=== PATIENT | female | born 1950 | race African-American/Black ===

== ENCOUNTER 2018-04-22 17:29 | Emergency (ER) | payer BC, MEDICARE ==
[~2018-04-22] VITALS: Ht 167.6 cm; Wt 86.2 kg
[~2018-04-22 17:29] MED LIST: ADALIMUMAB SQ; ISONIAZID300 MG PO; Z.0.AMLODIPINE BESY1 PO; Z.0.FOLIC ACID1 MG PO; Z.0.LIPITOR20 MG PO; Z.0.NEURONTIN400 MG PO; Z.0.PLAVIX75 MG PO; Z.0.SIMVASTATIN40 MG PO; Z.0.ULTRAM 50MG50 MG; Z.0.VITAMIN D2000 UN PO; Z.0.WELLBUTRIN SR150 PO; Z.0.ZOLPIDEM TARTRA1 PO; Z.1.ATENOLOL-CHLOR1 PO; Z.1.TIZANIDINE HCL4 PO; ZOCOR40 MG PO; [UNRECOGNIZED DRUG - OTHER]
--- NOTE | 2018-04-22 19:01 | Diagnostic Imaging Report ---
EXAMINATION: CXR 2 VIEW - HOPD 04/22/2018 6:20 PM COMPARISON: None INDICATION: Chronic cough, worse over the last two days. DISCUSSION: LINES: None. LUNGS: The lungs are well inflated and clear. No pneumonia or pulmonary edema. Calcified granuloma in the left midlung. PLEURA: No pleural effusion or pneumothorax. HEART AND MEDIASTINUM: Normal heart size. Atherosclerosis of the thoracic aorta. BONES AND SOFT TISSUES: No acute osseous lesion. The soft tissues are normal. IMPRESSION: No acute cardiopulmonary disease. Andi Fritz MD Signed by: Dr. Andi Fritz M.D. on 04/22/2018 6:58 PM
== END 2018-04-22 19:47 | disposition home or self-care (01) ==
LOC: FSED 17:29
DX: R05 Cough (principal); I10 Essential (primary) hypertension; E11.9 Type 2 diabetes mellitus without complications; M10.9 Gout, unspecified; M06.9 Rheumatoid arthritis, unspecified
CPT/HCPCS: 71046; 80053; 84484; 85025; 99283

== ENCOUNTER 2018-05-23 13:10 | Emergency (ER) | payer MEDICARE ==
[2018-05-23] MEDS ORDERED: ACETAMINOPHEN 325 MG TAB PO ONE (14:00)
--- NOTE | 2018-05-23 14:41 | Diagnostic Imaging Report ---
EXAMINATION: PA view of the chest. COMPARISON: None CLINICAL HISTORY: Syncope, elevated blood pressure DISCUSSION: Lines/tubes: None. Lungs: The lungs are well inflated and clear. No pneumonia or pulmonary edema. Scattered granuloma the left lung. Pleura: No pleural effusion or pneumothorax. Heart and mediastinum: The cardiomediastinal silhouette is normal. Bones and soft tissues: No acute bony abnormalities. IMPRESSION: No acute cardiopulmonary abnormalities. Signed by: Dr. Maxi Matt M.D. on 05/23/2018 2:37 PM
--- NOTE | 2018-05-23 14:42 | Diagnostic Imaging Report ---
History: Syncope Comparison studies: None Technique: Axial images were obtained from the skull base to the vertex. Coronal and sagittal reconstructions obtained from the axial data. Dose modulation, iterative reconstruction, and/or weight based adjustment of the mA/kV was utilized to reduce the radiation dose to as low as reasonably achievable. Findings: Scalp/skull: No abnormalities. No fractures, blastic or lytic lesions. Extra-axial spaces: No masses. No fluid collections. Brain sulci: Appropriate for age. Ventricles: Normal in size and configuration. No hydrocephalus. Parenchyma: No abnormal densities. No masses, hemorrhage, acute or chronic cortical vascular insults. Sellar/suprasellar region: No abnormalities Craniocervical junction: Patent foramen magnum. No Chiari one malformation. Partial opacification of the left masseter cells, secondary to nonspecific inflammation IMPRESSION: No intracranial abnormalities . Signed by: DR Carlos Easton M.D. on 05/23/2018 2:38 PM
[2018-05-23] MEDS ORDERED: IOPAMIDOL 370 MG/ML 50ML INFUS..BTL INJ ONE (16:00)
--- NOTE | 2018-05-23 16:42 | Diagnostic Imaging Report ---
EXAMINATION: CT scan of the chest with contrast. TECHNIQUE: Helical CT images of the chest were performed from the lung apices to the level of the adrenal glands after the intravenous administration of 100 cc of Isovue 300. Coronal and sagittal reformatted images were obtained.Dose modulation, iterative reconstruction, and/or weight based adjustment of the mA/kV was utilized to reduce the radiation dose to as low as reasonably achievable. COMPARISON: None. CLINICAL HISTORY:High blood pressure, dizziness DISCUSSION: LINES/TUBES: None. LUNGS AND AIRWAYS: No pulmonary embolism. Emphysematous change in the lungs. No concerning nodule or mass. Scattered calcified granuloma. PLEURA: No pneumothorax or pleural effusions. HEART AND MEDIASTINUM: The thyroid gland is normal. The heart and pericardium are within normal limits. Mild vascular calcifications. LYMPH NODES: There is no mediastinal, hilar or axillary lymphadenopathy. ABDOMEN: Limited contrast-enhanced views of the upper abdomen show no abnormality within the visualized liver, spleen, pancreas, or kidneys. The adrenal glands are normal. BONES AND SOFT TISSUES: No acute bony abnormalities. IMPRESSION: No pulmonary embolism Pulmonary emphysema Signed by: Dr. Maxi Matt M.D. on 05/23/2018 4:39 PM
[2018-05-23 17:55] VITALS: BP 174/78
== END 2018-05-23 18:30 | disposition left against medical advice (07) ==
LOC: FSED 13:10
DX: R55 Syncope and collapse (principal); M06.9 Rheumatoid arthritis, unspecified; I10 Essential (primary) hypertension; E11.9 Type 2 diabetes mellitus without complications
CPT/HCPCS: 70450; 71045; 71275; 93005; 99283; Q9967

== ENCOUNTER 2019-06-02 12:56 | Emergency (ER) | payer MEDICARE ==
[~2019-06-02] VITALS: Ht 167.6 cm; Wt 89.4 kg
[2019-06-02] MEDS ORDERED: OMEPRAZOLE40 MG PO (13:16)
[2019-06-02] MEDS ORDERED: HYDROCHLOROT 12.5MG PO (13:16)
[2019-06-02] MEDS ORDERED: ALLOPURINOL100 MG PO (13:16)
[2019-06-02] MEDS ORDERED: LEFLUNOMIDE20 MG PO (13:16)
[2019-06-02] MEDS ORDERED: LISINOPRIL10 MG PO (13:16)
[2019-06-02] MEDS ORDERED: GABAPENTIN300 MG PO (13:17)
[2019-06-02] MEDS ORDERED: ZOLOFT50 MG PO (13:17)
[2019-06-02] MEDS ORDERED: ACETAMINOPHEN-1 EAC4 (13:17)
[2019-06-02] MEDS ORDERED: CRESTOR10 MG PO (13:17)
[2019-06-02] MEDS ORDERED: XELJANZ 11 MG PO (13:17)
[2019-06-02] MEDS ORDERED: METOPROLOL SUCC50 MG PO (13:17)
--- NOTE | 2019-06-02 13:30 | NUR ---
PATIENT TO ROOM 7
[2019-06-02] MEDS ORDERED: SODIUM CHLORIDE 0.9% 500ML 500 ML IV STA (13:58)
[2019-06-02 14:03] LABS: BASOPHILS # (AUTO) 0.1 (0.0-0.1); BASOPHILS % 0.6 % (0.0-1.0); EOSINOPHILS # (AUTO) 0.1 (0.0-0.4); EOSINOPHILS % 1.5 % (0.0-6.0); HEMATOCRIT 33.3 % (34.2-44.1); HEMOGLOBIN 10.6 g/dL (12.0-16.0); LYMPHOCYTES # (AUTO) 1.9 (1.0-3.2); LYMPHOCYTES % 21.2 % (18.0-39.1); MEAN CORPUSCULAR HEMOGLOBIN 27.7 pg (28-32); MEAN CORPUSCULAR HGB CONC 31.8 g/dL (31-35); MEAN CORPUSCULAR VOLUME 86.9 fL (81-99); MONOCYTES # (AUTO) 0.7 (0.2-0.8); MONOCYTES % 7.5 % (4.4-11.3); NEUTROPHILS % 68.7 % (38.7-80.0); PLATELET COUNT 196 x10e3/uL (140-360); RED BLOOD COUNT 3.83 x10e6/uL (3.6-5.1); RED CELL DISTRIBUTION WIDTH 16.6 % (11.7-14.4)
[2019-06-02 14:14] LABS: INR 0.99; PROTHROMBIN TIME 13.6 seconds (11.9-14.5)
[2019-06-02 14:15] LABS: PARTIAL THROMBOPLASTIN TIME 29.2 seconds (23.8-35.5)
[2019-06-02 14:24] LABS: ALBUMIN 2.7 g/dL (3.5-5.0); ALBUMIN/GLOBULIN RATIO 0.5 (0.8-2.0); ANION GAP 12.4 mmol/L (8-16); CALCIUM 9.9 mg/dL (8.4-10.2); CREATININE, SERUM 1.24 mg/dL (0.57-1.11); POTASSIUM 4.4 mmol/L (3.5-5.1)
[2019-06-02 14:43] LABS: BILIRUBIN,URINE NEGATIVE (NEGATIVE); CLARITY,URINE SL CLOUDY (CLEAR); COLOR,URINE YELLOW (YELLOW); KETONES,URINE NEGATIVE (NEGATIVE); LEUKOCYTE ESTERASE ,URINE NEGATIVE (NEGATIVE); NITRITE,URINE NEGATIVE (NEGATIVE); PROTEIN,URINE DIPSTICK 3+ (NEGATIVE); URINE UROBILINOGEN 0.2 mg/dL (0.2 - 1)
[2019-06-02 14:45] LABS: BACTERIA,URINE FEW /HPF; EPITHELIAL CELLS,URINE FEW /LPF; RBC,URINE 0-5 /HPF (0-5); WBC,URINE (MAN) 0-5 /HPF (0-5)
[2019-06-02] MEDS ORDERED: ACETAMINOPHEN 325 MG TAB PO NR (15:00)
--- NOTE | 2019-06-02 15:03 | Diagnostic Imaging Report ---
History: Ringing in both ears, dizziness Comparison studies: CT head 05/23/2018 Technique: Axial images were obtained from the skull base to the vertex. Coronal and sagittal reconstructions obtained from the axial data. Dose modulation, iterative reconstruction, and/or weight based adjustment of the mA/kV was utilized to reduce the radiation dose to as low as reasonably achievable. Findings: Scalp/skull: No abnormalities. No fractures, blastic or lytic lesions. Extra-axial spaces: No masses. No fluid collections. Brain sulci: Appropriate for age. Ventricles: Normal in size and configuration. No hydrocephalus. Parenchyma: No abnormal densities. No masses, hemorrhage, acute or chronic cortical vascular insults. Sellar/suprasellar region: No abnormalities Craniocervical junction: Patent foramen magnum. No Chiari one malformation. Atherosclerotic calcifications of the carotid siphons. IMPRESSION: No acute abnormalities . Signed by: DR Carlos Easton M.D. on 06/02/2019 3:00 PM
[2019-06-02] MEDS ORDERED: ACETAMINOPHEN 325 MG TAB ONE (15:06)
--- NOTE | 2019-06-02 15:09 | Diagnostic Imaging Report ---
EXAMINATION: CHEST SINGLE (PORTABLE) INDICATION: ^ERMD ORDER ^[id number] ^1427 ^Y COMPARISON: Chest radiograph 04/22/2018 FINDINGS: AP view TUBES and LINES: None. LUNGS: Lungs are well inflated. Lungs are clear. There is no evidence of pneumonia or pulmonary edema. PLEURA: No pleural effusion or pneumothorax. HEART AND MEDIASTINUM: The cardiomediastinal silhouette is unremarkable.. BONES AND SOFT TISSUES: No acute osseous lesion. Soft tissues are unremarkable. UPPER ABDOMEN: No free air under the diaphragm. IMPRESSION: No acute thoracic abnormality. Signed by: Dr. Syl Sarkar M.D. on 06/02/2019 3:06 PM
== END 2019-06-02 16:06 | disposition home or self-care (01) ==
LOC: ER 12:56
DX: R42 Dizziness and giddiness (principal); R51 Headache; I10 Essential (primary) hypertension; E11.9 Type 2 diabetes mellitus without complications; F41.9 Anxiety disorder, unspecified; F32.9 Major depressive disorder, single episode, unspecified
CPT/HCPCS: 36415; 70450; 71045; 80053; 81001; 82550; 82553; 83880; 84484; 85025; 85610; 85730; 87086; 93005; 99284; J7040

== ENCOUNTER 2019-11-04 03:35 | Inpatient (IN) | payer MEDICARE ==
[~2019-11-04] VITALS: Ht 167.6 cm; Wt 81.6 kg
[~2019-11-04 03:35] MED LIST changes: +ACETAMINOPHEN-1 EAC4; +ALLOPURINOL100 MG PO; +CRESTOR10 MG PO; +GABAPENTIN300 MG PO; +HYDROCHLOROT 12.5MG PO; +LEFLUNOMIDE20 MG PO; +LISINOPRIL10 MG PO; +METOPROLOL SUCC50 MG PO; +OMEPRAZOLE40 MG PO; +XELJANZ 11 MG PO; +ZOLOFT50 MG PO
[2019-11-04] MEDS ORDERED: ALBUTEROL SULF 0.083% NEB SOLN 3 ML NEB NEB STA (03:42)
[2019-11-04] MEDS ORDERED: IPRATROPIUM BROMIDE 0.02% 2.5 ML NEB NEB ONE (03:45)
[2019-11-04] MEDS ORDERED: METHYLPREDNISOLONE SOD SUCC 125 MG/2ML VIAL IV ONE (03:45)
[2019-11-04 04:25] LABS: BASOPHILS # (AUTO) 0.1 (0.0-0.1); BASOPHILS % 0.5 % (0.0-1.0); EOSINOPHILS # (AUTO) 0.1 (0.0-0.4); EOSINOPHILS % 0.7 % (0.0-6.0); HEMOGLOBIN 10.2 g/dL (12.0-16.0); LYMPHOCYTES % 15.3 % (18.0-39.1); MEAN CORPUSCULAR HEMOGLOBIN 27.6 pg (28-32); MEAN CORPUSCULAR HGB CONC 30.9 g/dL (31-35); MEAN CORPUSCULAR VOLUME 89.4 fL (81-99); MONOCYTES # (AUTO) 0.4 (0.2-0.8); MONOCYTES % 3.4 % (4.4-11.3); NEUTROPHILS # (AUTO) 10.3 (2.1-6.9); NEUTROPHILS % 79.6 % (38.7-80.0); PLATELET COUNT 241 x10e3/uL (140-360); RED BLOOD COUNT 3.69 x10e6/uL (3.6-5.1); RED CELL DISTRIBUTION WIDTH 18.1 % (11.7-14.4)
[2019-11-04 04:41] LABS: ALANINE AMINOTRANSFERASE 17 IU/L (0-55); ALBUMIN 2.4 g/dL (3.5-5.0); ALBUMIN/GLOBULIN RATIO 0.5 (0.8-2.0); ALKALINE PHOSPHATASE 96 IU/L (40-150); ANION GAP 9.9 mmol/L (8-16); BLOOD UREA NITROGEN 23 mg/dL (7-26); BUN/CREATININE RATIO 16 (6-25); CALCIUM 8.9 mg/dL (8.4-10.2); CARBON DIOXIDE 24 mmol/L (22-29); CHLORIDE 105 mmol/L (98-107); CREATINE KINASE 170 IU/L (29-168); EST GLOMERULAR FILTRATION RATE 45 ML/MIN (60-); GLUCOSE 321 mg/dL (74-118); POTASSIUM 3.9 mmol/L (3.5-5.1); SODIUM 135 mmol/L (136-145)
--- NOTE | 2019-11-04 05:02 | Diagnostic Imaging Report ---
EXAMINATION: CHEST SINGLE (PORTABLE) INDICATION: Short of breath COMPARISON: Chest x-ray 04/22/2018 FINDINGS: TUBES and LINES: None. LUNGS: Hyperinflated lungs. Mild central bronchial wall thickening. No consolidations. Left midlung calcified granuloma. PLEURA: No pleural effusion or pneumothorax. HEART AND MEDIASTINUM: The cardiomediastinal silhouette is unremarkable. There are atherosclerotic calcifications within the aorta. BONES AND SOFT TISSUES: Degenerative changes in the spine and shoulders. Soft tissues are unremarkable. Partially visualized cervical fixation hardware. UPPER ABDOMEN: No free air under the diaphragm. IMPRESSION: Findings of pulmonary emphysema and bronchitis. Signed by: Trey Taveras DO on 11/04/2019 5:00 AM
[2019-11-04] MEDS ORDERED: DEXTROSE 50% SYRINGE 50 ML IV PRN (05:30)
[2019-11-04] MEDS: METHYLPREDNISOLONE SOD SUCC 40 MG/ML VIAL 1ML IV SCH ×3 (05:54→17:34)
[2019-11-04] MEDS: DOXYCYCLINE 100MG/NS 100ML 100 ML IV SCH ×2 (06:05→18:32)
--- NOTE | 2019-11-04 07:15 | NUR ---
report given to karen castro
[2019-11-04] MEDS: ALBUTEROL/IPRATROPIUM 3 ML NEB NEB SCH ×5 (07:57→23:00)
--- NOTE | 2019-11-04 08:11 | NUR ---
ASSTED TO RESTROOM. AMBULATORY STEADY GAIT. DENIES SOB.
[2019-11-04] MEDS: INSULIN REGULAR, HUMAN 100 UNIT/1 ML 3ML VIAL SQ SCH ×4 (08:38→21:07)
--- NOTE | 2019-11-04 11:00 | NUR ---
rec'd report from gloria jones for continuity of care.
[2019-11-04] MEDS ORDERED: ACETAMINOPHEN/CODEINE 300MG - 30MG TAB PO PRN (11:15)
[2019-11-04 12:06] LABS: CREATINE KINASE MB 2.2 ng/mL (0-5.0)
--- NOTE | 2019-11-04 12:37 | NUR ---
lab resulted glucose of 530
[2019-11-04] MEDS: AMLODIPINE BESYLATE 10 MG TAB PO SCH ×2 (12:55→13:30)
[2019-11-04] MEDS: METOPROLOL SUCCINATE 50 MG TAB XL PO SCH ×2 (12:56→13:31)
--- NOTE | 2019-11-04 14:58 | NUR ---
RECEIVED PATIENT FROM ER. PATIENT A/O X3. PATIENT ON 3LNC, NO S/S OF DISTRESS. TELEMETRY #1 SR. LEFT AC 20 GAUGE IV SL. PATIENT AMBULATES WITH STANDBY ASSISTANCE. DENIES PAIN AT THIS TIME. CALL LIGHT IN REACH WILL CONTINUE TO MONITOR PATIENT.
[2019-11-04] MEDS ORDERED: ACETAMINOPHEN 325 MG TAB PO PRN (16:45)
[2019-11-04] MEDS ORDERED: ONDANSETRON HCL INJ 2MG/ML 2ML 2 MG/ML VIAL IV PRN (16:45)
--- NOTE | 2019-11-04 16:57 | NUR ---
Called and spoke with Ramesh OGDEN regarding blood sugar 418. Order to give 15 units.
[2019-11-04] MEDS: BUPROPION HCL 100 MG PO SCH (17:00)
[2019-11-04 17:02] VITALS: BP 174/77
[2019-11-04 17:07] VITALS: BP 174/77
[2019-11-04 17:10] VITALS: BP 174/77
[2019-11-04] MEDS: GABAPENTIN 300 MG CAP PO SCH (17:34)
[2019-11-04 17:58] LABS: CREATINE KINASE MB 2.4 ng/mL (0-5.0)
[2019-11-04] MEDS: ATENOLOL 100 MG TAB PO SCH (18:00)
[2019-11-04] MEDS: HYDROCODONE/APAP 7.5MG-325MG 1 EA TAB PO PRN ×2 (18:00→18:32)
[2019-11-04] MEDS ORDERED: SODIUM CHLORIDE 0.9% 250ML 250 ML ONE (18:29)
[2019-11-04] MEDS: SERTRALINE HCL 50 MG TAB PO SCH (18:32)
--- NOTE | 2019-11-04 19:18 | NUR ---
Patient received sitting up in bed. AAO x 4. Patient had no complaints of pain. Respirations even and non-labored on 3L NC. . Fall precautions implemented. Patient instructed to call for assistance when needed. Call light within reach.
[2019-11-04 21:00] VITALS: BP 167/74
[2019-11-04] MEDS: INSULIN GLARGINE 100 UNITS/ML VIAL SQ SCH (21:00)
[2019-11-04] MEDS: SIMVASTATIN 20 MG TAB PO SCH (21:07)
[2019-11-04] MEDS ORDERED: SODIUM CHLORIDE 0.9% 1000ML 1,000 ML IV ONE (22:30)
[2019-11-05] VITALS (9 sets, daily range): BP systolic 121–177; BP diastolic 63–82
--- NOTE | 2019-11-05 02:08 | Consultation ---
DATE OF CONSULTATION: 11/04/2019 Pulmonary Critical Care Consultation CHIEF COMPLAINT: Dyspnea, wheezing, and worsening cough. HISTORY OF PRESENT ILLNESS: The patient is a 69-year-old woman. She was recently diagnosed with chronic bronchitis and has been on a rescue inhaler. Over the past several weeks, she notes worsening dyspnea and wheezing since catching a cough and cold. She also notes a nonproductive cough. She denies any fever. She is not having chest pain. PAST SURGICAL HISTORY: 1. Status post back surgery. 2. Status post neck surgery. 3. Status post vascular stent in the leg. PAST MEDICAL HISTORY: 1. Chronic bronchitis. 2. Chronic back pain. 3. Arthritis. 4. Diverticulosis. FAMILY HISTORY: Significant for hypertension, diabetes, and heart disease. SOCIAL HISTORY: The patient quit smoking 10 years ago. She does not drink. ALLERGIES: THERE ARE NO KNOWN DRUG ALLERGIES. REVIEW OF SYSTEMS: The patient has no fever or headache. She has no neck pain. She does have some mild cough. She has no chest pain. She does have some wheezing. She has dyspnea. She has no abdominal pain. She has no nausea or vomiting. She has no leg edema. PHYSICAL EXAMINATION: VITAL SIGNS: The patient is afebrile. The vital signs are stable. CARDIAC: Reveals a regular rate and rhythm with a normal S1 and S2. LUNGS: Auscultation of lungs reveals a prolonged expiratory phase. There is no wheezing at this time. ABDOMEN: Soft, nontender. There is no rebound or guarding. EXTREMITIES: No leg edema or calf tenderness. There is no cyanosis or clubbing. SKIN: No rashes. NEUROLOGICAL: No focal abnormalities. LABORATORY DATA: White blood cell count is 13, hemoglobin is 10.2. The platelet count is 241. Blood sugar is 328. BUN to creatinine ratio is 23 to 1.4. Sodium is 135. RADIOGRAPHIC DATA: Chest x-ray shows hyperinflation, no infiltrates. IMPRESSION: 1. Chronic obstructive pulmonary disease with acute exacerbation. 2. Anemia, unspecified. 3. Acute kidney injury. 4. Hyperglycemia and diabetes. PLAN: 1. Continue Solu-Medrol. 2. Doxycycline. 3. Bronchodilators. 4. IV fluids. 5. Monitor and control blood sugars. Sandip Garay MD [facility] /[id number]
[2019-11-05] MEDS: ALBUTEROL/IPRATROPIUM 3 ML NEB NEB SCH ×6 (03:00→23:00)
[2019-11-05] MEDS: DOXYCYCLINE 100MG/NS 100ML 100 ML IV SCH ×2 (05:30→17:52)
[2019-11-05 06:24] LABS: BASOPHILS % 0.1 % (0.0-1.0); HEMATOCRIT 28.7 % (34.2-44.1); HEMOGLOBIN 9.1 g/dL (12.0-16.0); LYMPHOCYTES # (AUTO) 1.1 (1.0-3.2); LYMPHOCYTES % 7.4 % (18.0-39.1); MEAN CORPUSCULAR HEMOGLOBIN 27.7 pg (28-32); MEAN CORPUSCULAR HGB CONC 31.7 g/dL (31-35); MEAN CORPUSCULAR VOLUME 87.5 fL (81-99); MONOCYTES # (AUTO) 0.8 (0.2-0.8); MONOCYTES % 5.3 % (4.4-11.3); NEUTROPHILS # (AUTO) 13.2 (2.1-6.9); NEUTROPHILS % 86.5 % (38.7-80.0); PLATELET COUNT 215 x10e3/uL (140-360); RED BLOOD COUNT 3.28 x10e6/uL (3.6-5.1); RED CELL DISTRIBUTION WIDTH 18.1 % (11.7-14.4)
--- NOTE | 2019-11-05 06:45 | NUR ---
Patient resting comfortably. Bed- side report given to oncoming nurse.
[2019-11-05 06:54] LABS: ANION GAP 8.8 mmol/L (8-16); CALCIUM 8.4 mg/dL (8.4-10.2); CREATININE, SERUM 1.59 mg/dL (0.57-1.11); POTASSIUM 4.8 mmol/L (3.5-5.1)
--- NOTE | 2019-11-05 07:03 | NUR ---
Patient lying in bed with eyes open. Respiration even and unlabored without SOB. Call light in reach.
[2019-11-05 07:25] LABS: MAGNESIUM 1.4 MG/DL (1.3-2.1); PHOSPHORUS 4.1 MG/DL (2.3-4.7)
[2019-11-05] MEDS: INSULIN REGULAR, HUMAN 100 UNIT/1 ML 3ML VIAL SQ SCH ×4 (07:30→21:09)
[2019-11-05] MEDS ORDERED: XELJANZ 11 MG PO SCH (09:00)
[2019-11-05] MEDS: BUPROPION HCL 100 MG PO SCH ×2 (09:00→17:00)
[2019-11-05] MEDS ORDERED: LISINOPRIL 10 MG TAB PO SCH (09:00)
[2019-11-05] MEDS ORDERED: LEFLUNOMIDE PO SCH (09:00)
[2019-11-05] MEDS ORDERED: HYDROCHLOROTHIAZIDE 12.5 MG PO SCH (09:00)
[2019-11-05] MEDS ORDERED: METHYLPREDNISOLONE SOD SUCC 40 MG/ML VIAL 1ML IV SCH (09:00)
[2019-11-05] MEDS ORDERED: SIMVASTATIN 40 MG TAB PO SCH (09:00)
[2019-11-05] MEDS ORDERED: SERTRALINE HCL 50 MG TAB PO SCH (09:00)
[2019-11-05] MEDS ORDERED: LISINOPRIL 20 MG TAB PO SCH (09:00)
[2019-11-05] MEDS: HYDROCHLOROTHIAZIDE 25 MG TAB PO SCH (09:03)
[2019-11-05] MEDS: GABAPENTIN 300 MG CAP PO SCH ×2 (09:03→17:52)
[2019-11-05] MEDS: AMLODIPINE BESYLATE 10 MG TAB PO SCH (09:04)
[2019-11-05] MEDS: ATENOLOL 100 MG TAB PO SCH ×2 (09:05→17:52)
[2019-11-05] MEDS: PANTOPRAZOLE SOD 40 MG TABEC PO SCH (09:05)
[2019-11-05] MEDS: SERTRALINE HCL 50 MG TAB PO SCH (09:05)
[2019-11-05] MEDS: ALLOPURINOL 100 MG TAB PO SCH (09:05)
[2019-11-05] MEDS: CLOPIDOGREL BISULFATE 75 MG TAB PO SCH (09:05)
[2019-11-05] MEDS ORDERED: SODIUM CHLORIDE 0.9% 1000ML 1,000 ML IV ONE (14:30)
--- NOTE | 2019-11-05 15:02 | Progress Note ---
DATE: 11/05/2019 SUBJECTIVE: The patient has less dyspnea and wheezing. However, her blood sugar was 538. Her creatinine is still elevated at 1.4. PHYSICAL EXAMINATION: VITAL SIGNS: The patient is afebrile. The blood pressure is 177/82 and the saturation is 99% on 2 L. HEENT: Shows no facial swelling or erythema. CARDIAC: Reveals a regular rate and rhythm with normal S1 and S2. LUNGS: Auscultation of lungs reveals clear breath sounds bilaterally. There is no wheezing. ABDOMEN: Soft and nontender. There is no rebound or guarding. EXTREMITIES: Shows no leg edema or calf tenderness. There is no cyanosis or clubbing. SKIN: Shows no rashes. NEUROLOGICAL: Shows no focal abnormalities. LABORATORY DATA: Creatinine is 1.4 and the sodium is 135. The white blood cell count 15.2 and the hemoglobin is 9.1. The platelet count is 250. IMPRESSION: 1. Diabetes out of control with blood sugar over 500. 2. Acute kidney injury. 3. Chronic obstructive pulmonary disease with acute exacerbation. 4. Anemia, unspecified. PLAN: 1. Stop Solu-Medrol. 2. Continue IV fluids. 3. Continue bronchodilators. 4. Complete antibiotics. 5. Repeat creatinine tomorrow. Sandip Garay MD [facility]/DIOR /[id number] MTDD
[2019-11-05] MEDS ORDERED: ONDANSETRON HCL 4 MG ORAL DISINTEGRATING TAB PO PRN (15:15)
--- NOTE | 2019-11-05 19:20 | NUR ---
Received patient awake, not in distress, call light within easy reach, advised to call anytime when needed, will continue to monitor patient
--- NOTE | 2019-11-05 19:32 | NUR ---
Report given to retail shift supervisor. Respiration even and unlabored without SOB. Call light in reach.
[2019-11-05] MEDS: SIMVASTATIN 20 MG TAB PO SCH (21:09)
[2019-11-05] MEDS: INSULIN GLARGINE 100 UNITS/ML VIAL SQ SCH (21:09)
[2019-11-05] MEDS: HYDRALAZINE HCL 20 MG/ML VIAL IV PRN (21:12)
[2019-11-05] MEDS: HYDROCODONE/APAP 7.5MG-325MG 1 EA TAB PO PRN (22:56)
[2019-11-06] VITALS (7 sets, daily range): BP systolic 139–168; BP diastolic 63–74
[2019-11-06] MEDS: ALBUTEROL/IPRATROPIUM 3 ML NEB NEB SCH ×4 (01:45→15:12)
[2019-11-06] MEDS: HYDRALAZINE HCL 20 MG/ML VIAL IV PRN (05:24)
[2019-11-06] MEDS: DOXYCYCLINE 100MG/NS 100ML 100 ML IV SCH (05:24)
[2019-11-06] MEDS: HYDROCODONE/APAP 7.5MG-325MG 1 EA TAB PO PRN (05:24)
[2019-11-06 06:23] LABS: BASOPHILS % 0.1 % (0.0-1.0); EOSINOPHILS % 0.1 % (0.0-6.0); HEMATOCRIT 30.7 % (34.2-44.1); HEMOGLOBIN 9.5 g/dL (12.0-16.0); LYMPHOCYTES # (AUTO) 1.9 (1.0-3.2); LYMPHOCYTES % 14.2 % (18.0-39.1); MEAN CORPUSCULAR HEMOGLOBIN 27.6 pg (28-32); MEAN CORPUSCULAR HGB CONC 30.9 g/dL (31-35); MEAN CORPUSCULAR VOLUME 89.2 fL (81-99); MONOCYTES % 7.5 % (4.4-11.3); NEUTROPHILS # (AUTO) 10.5 (2.1-6.9); NEUTROPHILS % 76.9 % (38.7-80.0); PLATELET COUNT 236 x10e3/uL (140-360); RED BLOOD COUNT 3.44 x10e6/uL (3.6-5.1); RED CELL DISTRIBUTION WIDTH 18.5 % (11.7-14.4)
[2019-11-06 06:53] LABS: ALBUMIN 2.3 g/dL (3.5-5.0); ALBUMIN/GLOBULIN RATIO 0.5 (0.8-2.0); ANION GAP 9.9 mmol/L (8-16); CALCIUM 8.5 mg/dL (8.4-10.2); CREATININE, SERUM 1.44 mg/dL (0.57-1.11); POTASSIUM 3.9 mmol/L (3.5-5.1)
--- NOTE | 2019-11-06 07:12 | NUR ---
Bedside rounding done, call light within reach, grand daughter at bedside
[2019-11-06] MEDS: INSULIN REGULAR, HUMAN 100 UNIT/1 ML 3ML VIAL SQ SCH ×2 (07:30→12:00)
[2019-11-06] MEDS: HYDROCHLOROTHIAZIDE 25 MG TAB PO SCH (09:38)
[2019-11-06] MEDS: GABAPENTIN 300 MG CAP PO SCH (09:38)
[2019-11-06] MEDS: SERTRALINE HCL 50 MG TAB PO SCH (09:38)
[2019-11-06] MEDS: ATENOLOL 100 MG TAB PO SCH (09:38)
[2019-11-06] MEDS: AMLODIPINE BESYLATE 10 MG TAB PO SCH (09:38)
[2019-11-06] MEDS: PANTOPRAZOLE SOD 40 MG TABEC PO SCH (09:38)
[2019-11-06] MEDS: CLOPIDOGREL BISULFATE 75 MG TAB PO SCH (09:38)
[2019-11-06] MEDS: ALLOPURINOL 100 MG TAB PO SCH (09:39)
[2019-11-06] MEDS ORDERED: ATENOLOL100 MG PO (13:51)
--- NOTE | 2019-11-06 15:41 | NUR ---
Discharge instructions and prescriptions given to the patient. She verbalized understanding. IV to the left FA was removed with tip intact.
--- NOTE | 2019-11-06 15:59 | NUR ---
IMM letter delivered and explained to pt. She verbalized understanding. States she is ready to go home. Signed copy placed in chart. Copy to pt.
--- NOTE | 2019-11-06 16:48 | Progress Note ---
DATE: 11/06/2019 SUBJECTIVE: The patient has less dyspnea and less wheezing. Her blood sugar is better. She is not having any fevers. PHYSICAL EXAMINATION: VITAL SIGNS: The patient is afebrile. The blood pressure is 152/69 and saturation is 99% on 2 L. HEENT: Shows no facial swelling or erythema. CARDIAC: Reveals regular rate and rhythm with normal S1 and S2. LUNGS: Auscultation of lungs reveals clear breath sounds bilaterally. There is no wheezing. ABDOMEN: Soft and nontender. There is no rebound or guarding. EXTREMITIES: Shows no leg edema or calf tenderness. LABORATORY DATA: BUN to creatinine ratio is 36 to 1.44 and the glucose is 158. The white blood cell count is 13.6 and the hemoglobin is 9.5. The platelet count is 236. IMPRESSION: 1. Diabetes out of control. 2. Acute kidney injury. 3. Chronic obstructive pulmonary disease with acute exacerbation. 4. Anemia, unspecified. PLAN: 1. Continue bronchodilators. 2. Complete antibiotics as an outpatient. 3. Continue to monitor blood sugars. 4. Okay for discharge with followup in 1 to 2 weeks. Sandip Garay MD [facility]/MODL /[id number]
--- NOTE | 2019-11-08 04:50 | Discharge Summary ---
CHIEF COMPLAINT: Shortness of breath. CONSULTING PHYSICIANS: Include Dr. Sandip Garay with Pulmonology. HISTORY OF PRESENT ILLNESS: Ms. Argueta is a 69-year-old female, who was diagnosed with asthma and probable COPD. Three weeks prior to admission, she developed shortness of breath the night prior to admission, received a nebulized treatment en route to the emergency department. She had cough and wheezing, which is started two days prior. The shortness of breath was much worse at 2:30 in the morning on November 03 and she was admitted for further evaluation. PAST MEDICAL HISTORY: COPD, asthma, hypertension, diabetes mellitus, anxiety, depression, chronic back pain, gout, arthritis, rheumatoid arthritis, chronic hip pain, "one kidney", hyperlipidemia, chronic bronchitis, EGD/colonoscopy on 06/22/2012, colon polyps, diverticulosis, and obesity. PAST SURGICAL HISTORY: Includes vascular stent to the leg, back surgery x3, and neck surgery x1. FAMILY HISTORY: Mother has hypertension, diabetes mellitus, arthritis. Brother has hypertension and GA. SOCIAL HISTORY: The patient began smoking at age 15. She quit smoking in 2009. She smoked about 44 years at one pack per day for 44 pack years. Smoked marijuana off and on. ALLERGIES: NO KNOWN ALLERGIES. ADMITTING DIAGNOSES: 1. Acute exacerbation of chronic obstructive pulmonary disease with hypoxia. 2. Uncontrolled hypertension. 3. Uncontrolled type 2 diabetes mellitus with hyperglycemia. 4. Anxiety/depression. 5. Rheumatoid arthritis, chronic back pain. 6. Hyperlipidemia. 7. Obesity with BMI of 31.79. DISCHARGE DIAGNOSES: 1. Acute exacerbation of chronic obstructive pulmonary disease with hypoxia. 2. Uncontrolled hypertension. 3. Uncontrolled type 2 diabetes mellitus with hyperglycemia. 4. Anxiety/depression. 5. Rheumatoid arthritis, chronic back pain. 6. Hyperlipidemia. 7. Obesity with BMI of 31.79. HOSPITAL COURSE: On admission lab, glucose 538. B type nitrate peptide 127.9. Fingerstick blood glucose 418. Cardiac biomarkers were negative. Chest x-ray showed pulmonary emphysema and bronchitis. BUN 23, creatinine 1.4. EGFR 45. WBCs 12.9, hemoglobin 10.2, hematocrit 33, total protein 7.6, albumin 2.4. Today on the day of discharge, WBCs 13.61, while still receiving steroids, hemoglobin 9.5, hematocrit 30.7, platelets 236. BUN 36, creatinine 1.44, estimated GFR 44. Fingerstick blood glucose levels 100 and 158 mg/dL today. Influenza types A and B were negative on November 04. The next day, the patient was given IV Solu-Medrol, supplemental oxygen, DuoNebs. Her Leflunomide was held, which she receives for rheumatoid arthritis as it is immunosuppressive. Lisinopril was held, given her creatinine to 1.4. Hemoglobin A1c was 7.2%. Bupropion and sertraline were continued for anxiety/depression. The patient is gradually improved. Sending her home today without Lantus as her IV steroids been discontinued. Continue glipizide and Xeljanz. Case was discussed with Dr. Lao and Dr. Garay, both concur that the patient can be discharged home. Continue ADA diet. Activity level as tolerated. Follow up with PCP, Dr. Bello in 1 to 2 weeks. Follow up with Dr. Garay as directed. Dictated by Ramesh Arroyo NP MD [facility]/MODL /[id number]
== END 2019-11-06 16:42 | disposition home or self-care (01) | DRG 191 ==
LOC: ER 03:35 → ERHOLD 05:42 → MED/SURG2 14:52 → OBSVTOIN 11-05 14:03
PROVIDERS: ADMIT Internal Medicine; ATTEND Internal Medicine
DX: J44.1 Chronic obstructive pulmonary disease with (acute) exacerbation (principal); N17.9 Acute kidney failure, unspecified; I10 Essential (primary) hypertension; E11.65 Type 2 diabetes mellitus with hyperglycemia; F41.9 Anxiety disorder, unspecified; F32.9 Major depressive disorder, single episode, unspecified; M06.9 Rheumatoid arthritis, unspecified; E66.9 Obesity, unspecified; Z68.31 Body mass index [BMI] 31.0-31.9, adult; E78.5 Hyperlipidemia, unspecified; R09.02 Hypoxemia; G89.29 Other chronic pain
CPT/HCPCS: 36415; 71045; 80048; 80053; 82550; 82553; 82947; 82948; 83036; 83735; 83880; 84100; 84484; 85025; 87400; 93005; 94640; 99284; G0378; J0360; J1815; J1817; J2920; J2930; J7030; J7050

== ENCOUNTER 2022-04-05 16:58 | Emergency (ER) | payer MEDICARE ==
[~2022-04-05] VITALS: Ht 167.6 cm; Wt 74.1 kg
[~2022-04-05 16:58] MED LIST changes: +ASPIRIN81 MG PO; +ATENOLOL100 MG PO; +HYDROCODON-ACE1 EAC9; +TRELEGY ELLIPT1 EACH; +TRESIBA FL100 UNIT/1 SQ
[2022-04-05] MEDS ORDERED: DEXAMETHASONE SOD PHOS 10 MG/1 ML VIAL IM ONE (17:15)
[2022-04-05] MEDS ORDERED: TRIAMCINOLONE A15 G2 TOP (17:22)
[2022-04-05] MEDS ORDERED: HYDROXYZINE HCL50 MG PO (17:22)
[2022-04-05] MEDS ORDERED: DIPHENHYDRAMINE50 M1 PO (17:22)
[2022-04-05] MEDS ORDERED: DEXAMETHASONE SOD PHOS INJ 4 MG/ML SDV ONE (17:31)
[2022-04-05] MEDS ORDERED: LOSARTAN POTAS100 MG PO (17:48)
[2022-04-05] MEDS ORDERED: PULMICORT1 MG/2 ML (17:48)
[2022-04-05] MEDS ORDERED: CRESTOR10 MG PO (17:48)
[2022-04-05] MEDS ORDERED: TRELEGY ELLIPT1 EACH (17:48)
[2022-04-05] MEDS ORDERED: COMBIVENT RESPIM4 GM IH (17:48)
[2022-04-05] MEDS ORDERED: HYDROCHLOROTHIA50 MG (17:48)
[2022-04-05] MEDS ORDERED: SODIUM BICARBO650 MG PO (17:48)
== END 2022-04-05 17:41 | disposition home or self-care (01) ==
LOC: FSED 17:02
DX: R21 Rash and other nonspecific skin eruption (principal); I10 Essential (primary) hypertension; E11.9 Type 2 diabetes mellitus without complications; J44.9 Chronic obstructive pulmonary disease, unspecified; I50.9 Heart failure, unspecified; E78.5 Hyperlipidemia, unspecified; M06.9 Rheumatoid arthritis, unspecified; Z86.73 Personal history of transient ischemic attack (TIA), and cerebral infarction without residual deficits
CPT/HCPCS: 36415; 82948; 96372; 99283; J1100

== ENCOUNTER 2022-09-15 12:30 | Emergency (ER) | payer MEDICARE ==
[~2022-09-15] VITALS: Ht 167.6 cm; Wt 73.9 kg
[~2022-09-15 12:30] MED LIST changes: +COMBIVENT RESPIM4 GM IH; +DIPHENHYDRAMINE50 M1 PO; +HYDROCHLOROTHIA50 MG; +HYDROXYZINE HCL50 MG PO; +LOSARTAN POTAS100 MG PO; +PULMICORT1 MG/2 ML; +SODIUM BICARBO650 MG PO; +TRIAMCINOLONE A15 G2 TOP
[2022-09-15] MEDS ORDERED: DIATRIZOATE MEGL/DIATRIZOA SOD 30 ML BTL PO ONE (13:46)
[2022-09-15] MEDS ORDERED: ONDANSETRON HCL INJ 2MG/ML 2ML 2 MG/ML VIAL IV STA (14:55)
[2022-09-15] MEDS ORDERED: Morphine 4mg INJECTION 4 MG/ML INJ IV ONE ×2 (15:00→16:00)
[2022-09-15] MEDS ORDERED: ONDANSETRON HCL INJ 2MG/ML 2ML 2 MG/ML VIAL ONE (15:34)
[2022-09-15] MEDS ORDERED: METHOCARBAMOL500 MG PO (16:29)
== END 2022-09-15 16:37 | disposition home or self-care (01) ==
LOC: FSED 12:37
DX: M54.50 Low back pain, unspecified (principal); R10.32 Left lower quadrant pain; I10 Essential (primary) hypertension; D64.9 Anemia, unspecified; E11.65 Type 2 diabetes mellitus with hyperglycemia; J44.9 Chronic obstructive pulmonary disease, unspecified; E78.5 Hyperlipidemia, unspecified
CPT/HCPCS: 74176; 80053; 81003; 85025; 99284; J2270; J2405; Q9963

== ENCOUNTER 2024-08-31 16:01 | Emergency (ER) | payer MEDICARE ==
[~2024-08-31] VITALS: Ht 167.6 cm; Wt 69.9 kg
[~2024-08-31 16:01] MED LIST changes: +METHOCARBAMOL500 MG PO
[2024-08-31 16:36] VITALS: PULSE 66; RESP 16; TEMP 97.4
[2024-08-31] MEDS ORDERED: SODIUM CHLORIDE FLUSH 10 ML SYR IV PRN (17:15)
[2024-08-31 17:18] LABS: BASOPHILS % 0.6 % (0.0-1.0); EOSINOPHILS # (AUTO) 0.2 (0.0-0.4); EOSINOPHILS % 2.5 % (0.0-6.0); HEMATOCRIT 27.9 % (34.2-44.1); HEMOGLOBIN 8.2 g/dL (12.0-16.0); LYMPHOCYTES % 15.1 % (18.0-39.1); MEAN CORPUSCULAR HEMOGLOBIN 27.2 pg (28-32); MEAN CORPUSCULAR HGB CONC 29.4 g/dL (31-35); MEAN CORPUSCULAR VOLUME 92.4 fL (81-99); MONOCYTES # (AUTO) 0.5 (0.2-0.8); MONOCYTES % 7.3 % (4.4-11.3); NEUTROPHILS % 74.2 % (38.7-80.0); PLATELET COUNT 243 x10e3/uL (140-360); RED BLOOD COUNT 3.02 x10e6/uL (3.6-5.1); RED CELL DISTRIBUTION WIDTH 16.4 % (11.7-14.4)
[2024-08-31 17:30] LABS: ALBUMIN 2.7 g/dL (3.5-5.0); ALBUMIN/GLOBULIN RATIO 0.6 (0.8-2.0); ANION GAP 12.6 mmol/L (8-16); BILIRUBIN,TOTAL 0.2 mg/dL (0.2-1.2); CALCIUM 8.2 mg/dL (8.4-10.2); CREATININE, SERUM 4.37 mg/dL (0.57-1.11); POTASSIUM 4.6 mmol/L (3.5-5.1); TOTAL PROTEIN 7.4 g/dL (6.5-8.1)
[2024-08-31] MEDS: METOPROLOL SUCCINATE 25 MG TAB XL PO SCH (17:30)
[2024-08-31 17:35] LABS: TROPONIN I 0.037 ng/mL (0-0.300)
[2024-08-31] MEDS: HYDRALAZINE HCL 100 MG TABLET PO SCH (18:36)
[2024-08-31] MEDS: HYDROCHLOROTHIAZIDE 25 MG TAB PO SCH (18:38)
[2024-08-31] MEDS: ISOSORBIDE DINITRATE 20 MG TAB PO SCH (18:38)
[2024-08-31] MEDS: LOSARTAN POTASSIUM 100 MG TAB PO SCH (18:39)
[2024-08-31 20:08] VITALS: BP 172/84; PULSE 71; RESP 18; TEMP 98.3; O2SAT 99
== END 2024-08-31 19:42 | disposition home or self-care (01) ==
LOC: ER 17:03
DX: I10 Essential (primary) hypertension (principal); I12.9 Hypertensive chronic kidney disease with stage 1 through stage 4 chronic kidney disease, or unspecified chronic kidney disease; N18.9 Chronic kidney disease, unspecified; D64.9 Anemia, unspecified; Z91.148 Patient's other noncompliance with medication regimen for other reason
CPT/HCPCS: 36415; 71046; 80053; 83880; 84484; 85025; 93005; 94760; 99284

== ENCOUNTER 2024-09-15 09:21 | Inpatient (IN) | payer MEDICARE ==
[~2024-09-15] VITALS: Ht 167.6 cm; Wt 77.2 kg
[2024-09-15] VITALS (35 sets, daily range): BP systolic 161–210; BP diastolic 59–86; PULSE 59–76; RESP 6–20; TEMP 97.5–99; O2SAT 99–100
[2024-09-15] MEDS: SODIUM CHLORIDE FLUSH 10 ML SYR INJ PRN (09:22)
[2024-09-15] MEDS: ETOMIDATE 40 MG/ 20ML VIAL IV STA (09:25)
[2024-09-15] MEDS: SUCCINYLCHOLINE 200 MG/10 ML SYR IV STA (09:25)
[2024-09-15] MEDS: PROPOFOL IV EMULSION 50 ML IV PRN (09:30)
[2024-09-15] MEDS ORDERED: PROPOFOL IV EMULSION 50 ML IV ONE (09:40)
[2024-09-15] MEDS: MIDAZOLAM HCL 2 MG/2 ML VIAL IV ONE (09:45)
[2024-09-15 10:15] LABS: BASOPHILS # (AUTO) 0.1 (0.0-0.1); BASOPHILS % 0.4 % (0.0-1.0); EOSINOPHILS # (AUTO) 0.3 (0.0-0.4); EOSINOPHILS % 2.2 % (0.0-6.0); HEMATOCRIT 29.6 % (34.2-44.1); HEMOGLOBIN 8.3 g/dL (12.0-16.0); LYMPHOCYTES # (AUTO) 3.2 (1.0-3.2); LYMPHOCYTES % 23.5 % (18.0-39.1); MEAN CORPUSCULAR HEMOGLOBIN 26.9 pg (28-32); MEAN CORPUSCULAR VOLUME 96.1 fL (81-99); MONOCYTES # (AUTO) 0.9 (0.2-0.8); MONOCYTES % 6.9 % (4.4-11.3); NEUTROPHILS # (AUTO) 8.8 (2.1-6.9); NEUTROPHILS % 65.4 % (38.7-80.0); PLATELET COUNT 278 x10e3/uL (140-360); RED BLOOD COUNT 3.08 x10e6/uL (3.6-5.1); RED CELL DISTRIBUTION WIDTH 17.5 % (11.7-14.4)
[2024-09-15 10:29] LABS: ABG HCO3 22 mmol/L (22-26); ABG PCO2 46 mmHg (35-45); ABG PH 7.29 (7.35-7.45); ABG PO2 95 mmHg (80-105); ABG TCO2 24
[2024-09-15 10:30] LABS: INR 1.28; PROTHROMBIN TIME 16.7 seconds (11.9-14.5)
[2024-09-15 10:31] LABS: PARTIAL THROMBOPLASTIN TIME 32.4 seconds (23.8-35.5)
[2024-09-15 10:38] LABS: ALBUMIN 2.7 g/dL (3.5-5.0); ALBUMIN/GLOBULIN RATIO 0.5 (0.8-2.0); ANION GAP 19.6 mmol/L (8-16); BILIRUBIN,TOTAL 0.6 mg/dL (0.2-1.2); CALCIUM 8.4 mg/dL (8.4-10.2); CREATININE, SERUM 5.96 mg/dL (0.57-1.11); MAGNESIUM 1.9 MG/DL (1.3-2.1); PHOSPHORUS 6.6 MG/DL (2.3-4.7); POTASSIUM 4.6 mmol/L (3.5-5.1); TOTAL PROTEIN 7.7 g/dL (6.5-8.1)
[2024-09-15 10:44] LABS: TROPONIN I 0.166 ng/mL (0-0.300)
[2024-09-15] MEDS: METHYLPREDNISOLONE SOD SUCC 125 MG/2ML VIAL IV ONE (10:52)
[2024-09-15] MEDS: ALBUTEROL/IPRATROPIUM 3 ML NEB NEB ONE (10:52)
[2024-09-15] MEDS: CEFEPIME 2 GM in SODIUM CHLORIDE 0.9% 100 ML IV ONE (10:54)
[2024-09-15] MEDS: VANCOMYCIN 1.25GM/250 ML (PEG) 250 ML IV SCH (11:15)
[2024-09-15 11:35] LABS: AMPHETAMINES SCREEN,URINE NEGATIVE (NEGATIVE); BENZODIAZEPINES SCREEN,URINE POSITIVE (NEGATIVE); BILIRUBIN,URINE NEGATIVE (NEGATIVE); CANNABINOIDS SCREEN,URINE NEGATIVE (NEGATIVE); CLARITY,URINE SL CLOUDY (CLEAR); COCAINE SCREEN,URINE NEGATIVE (NEGATIVE); COLOR,URINE YELLOW (YELLOW); GLUCOSE, URINE NEGATIVE (NEGATIVE); KETONES,URINE NEGATIVE (NEGATIVE); LEUKOCYTE ESTERASE ,URINE TRACE (NEGATIVE); METHADONE SCREEN, URINE NEGATIVE (NEGATIVE); NITRITE,URINE NEGATIVE (NEGATIVE); OPIATES SCREEN,URINE NEGATIVE (NEGATIVE); PH,URINE 7 (5 - 7); PHENCYCLIDINE SCREEN,URINE NEGATIVE (NEGATIVE); PROTEIN,URINE DIPSTICK >=300 (NEGATIVE); URINE UROBILINOGEN 0.2 mg/dL (0.2 - 1)
[2024-09-15 11:51] LABS: AMORPHOUS SEDIMENT,URINE FEW (FEW); BACTERIA,URINE MANY /HPF; EPITHELIAL CELLS,URINE MODERATE /LPF
[2024-09-15] MEDS: SODIUM CHLORIDE 0.9% 1000ML 1,000 ML IV ONE (11:58)
[2024-09-15] MEDS ORDERED: ETOMIDATE 2 MG/ML 10 ML INJ IV ONE (12:06)
[2024-09-15] MEDS ORDERED: SUCCINYLCHOLINE CHLORIDE 20 MG/ML 10ML VIAL ONE (12:06)
[2024-09-15] MEDS ORDERED: MIDAZOLAM HCL 2 MG/2 ML VIAL ONE (12:06)
[2024-09-15] MEDS ORDERED: ONDANSETRON HCL INJ 2MG/ML 2ML 2 MG/ML VIAL IV PRN (13:00)
[2024-09-15] MEDS: MUPIROCIN 2% OINT 22 GM TUBE TOP SCH (13:00)
[2024-09-15] MEDS ORDERED: SODIUM CHLORIDE FLUSH 10 ML SYR INJ PRN (13:00)
[2024-09-15] MEDS: FUROSEMIDE INJ 10 MG/ML 4 ML VIAL IV ONE ×2 (13:38→19:36)
[2024-09-15 13:54] LABS: CORONAVIRUS COVID-19 AG NEGATIVE (NEGATIVE); INFLUENZA A AG NEGATIVE (NEGATIVE); INFLUENZA B AG NEGATIVE (NEGATIVE)
[2024-09-15] MEDS: PROPOFOL IV EMULSION 10MG/ML 100 ML IV PRN (16:22)
[2024-09-15] MEDS: HYDRALAZINE HCL 20 MG/ML VIAL IV PRN (17:24)
[2024-09-15 18:43] LABS: CREATININE,URINE RANDOM 87.8 mg/dL (47-110)
[2024-09-15] MEDS ORDERED: DEXTROSE 50% SYRINGE 50 ML IV PRN (18:45)
[2024-09-15 19:59] LABS: ABG HCO3 18 mmol/L (22-26); ABG PCO2 28 mmHg (35-45); ABG PH 7.42 (7.35-7.45); ABG PO2 157 mmHg (80-105); ABG TCO2 19
[2024-09-15] MEDS: INSULIN GLARGINE 100 UNITS/ML VIAL SQ SCH (21:00)
[2024-09-15] MEDS: HEPARIN SOD (PORCINE) 5,000 UNIT/ML VIAL SC SCH (21:01)
[2024-09-15] MEDS: INSULIN REGULAR, HUMAN 100 UNIT/1 ML SQ SCH (21:02)
[2024-09-15] MEDS: FUROSEMIDE INJ 10 MG/ML 4 ML VIAL IV SCH (23:42)
[2024-09-16] VITALS (46 sets, daily range): BP systolic 108–207; BP diastolic 54–85; PULSE 55–81; RESP 14–21; TEMP 96–99; O2SAT 98–100
[2024-09-16] MEDS: HYDRALAZINE HCL 20 MG/ML VIAL IV PRN (00:27)
[2024-09-16 07:32] LABS: BASOPHILS % 0.1 % (0.0-1.0); EOSINOPHILS % 0.1 % (0.0-6.0); HEMATOCRIT 29.8 % (34.2-44.1); HEMOGLOBIN 8.8 g/dL (12.0-16.0); LYMPHOCYTES # (AUTO) 0.7 (1.0-3.2); LYMPHOCYTES % 10.3 % (18.0-39.1); MEAN CORPUSCULAR HEMOGLOBIN 27.2 pg (28-32); MEAN CORPUSCULAR HGB CONC 29.5 g/dL (31-35); MONOCYTES # (AUTO) 0.7 (0.2-0.8); MONOCYTES % 9.3 % (4.4-11.3); NEUTROPHILS # (AUTO) 5.5 (2.1-6.9); NEUTROPHILS % 79.1 % (38.7-80.0); PLATELET COUNT 155 x10e3/uL (140-360); RED BLOOD COUNT 3.24 x10e6/uL (3.6-5.1); RED CELL DISTRIBUTION WIDTH 17.3 % (11.7-14.4)
[2024-09-16 08:01] LABS: ABG HCO3 20 mmol/L (22-26); ABG PCO2 34 mmHg (35-45); ABG PH 7.39 (7.35-7.45); ABG PO2 134 mmHg (80-105); ABG TCO2 21
[2024-09-16 08:01] LABS: ABG HCO3 18 mmol/L (22-26); ABG PCO2 28 mmHg (35-45); ABG PH 7.42 (7.35-7.45); ABG PO2 157 mmHg (80-105); ABG TCO2 19
[2024-09-16 08:01] LABS: ABG HCO3 22 mmol/L (22-26); ABG PCO2 46 mmHg (35-45); ABG PH 7.29 (7.35-7.45); ABG PO2 95 mmHg (80-105); ABG TCO2 24
[2024-09-16 08:01] LABS: MAGNESIUM 1.8 MG/DL (1.3-2.1); PHOSPHORUS 6.2 MG/DL (2.3-4.7)
[2024-09-16 08:04] LABS: ALBUMIN 2.6 g/dL (3.5-5.0); ALBUMIN/GLOBULIN RATIO 0.6 (0.8-2.0); ANION GAP 20.7 mmol/L (8-16); BILIRUBIN,TOTAL 0.4 mg/dL (0.2-1.2); CALCIUM 8.9 mg/dL (8.4-10.2); CREATININE, SERUM 5.55 mg/dL (0.57-1.11); POTASSIUM 4.7 mmol/L (3.5-5.1); TOTAL PROTEIN 7.2 g/dL (6.5-8.1)
[2024-09-16 08:09] LABS: ABG PH 7.39 (7.35-7.45)
[2024-09-16 08:10] LABS: ABG HCO3 20 mmol/L (22-26); ABG PCO2 34 mmHg (35-45); ABG PO2 134 mmHg (80-105); ABG TCO2 21
[2024-09-16] MEDS: SIMVASTATIN 40 MG TAB PO SCH (08:20)
[2024-09-16] MEDS: CLOPIDOGREL BISULFATE 75 MG TAB PO SCH (08:20)
[2024-09-16] MEDS: SODIUM BICARBONATE 650 MG TAB PO SCH (08:21)
[2024-09-16] MEDS: LOSARTAN POTASSIUM 100 MG TAB PO SCH (08:21)
[2024-09-16] MEDS: ASPIRIN 81 MG CHEW TAB PO SCH (08:21)
[2024-09-16] MEDS: ALLOPURINOL 100 MG TAB PO SCH (08:21)
[2024-09-16] MEDS: INSULIN REGULAR, HUMAN 100 UNIT/1 ML SQ SCH (12:00)
[2024-09-16] MEDS ORDERED: MANNITOL 25% 12.5GM/50 ML VIAL IV PRN (13:15)
[2024-09-16] MEDS ORDERED: HEPARIN SOD (PORCINE) 1000 UNIT/ML SDV IV PRN (13:15)
[2024-09-16] MEDS ORDERED: SODIUM CHLORIDE 0.9% 1000ML 2,000 ML IV PRN (13:15)
[2024-09-16] MEDS: ATORVASTATIN 40 MG TAB PO SCH (21:00)
[2024-09-17] VITALS (33 sets, daily range): BP systolic 126–190; BP diastolic 50–67; PULSE 58–105; RESP 11–22; TEMP 98.2–98.3; O2SAT 93–100
[2024-09-17 06:57] LABS: BASOPHILS # (AUTO) 0.1 (0.0-0.1); BASOPHILS % 0.6 % (0.0-1.0); EOSINOPHILS # (AUTO) 0.3 (0.0-0.4); EOSINOPHILS % 3.7 % (0.0-6.0); HEMATOCRIT 25.6 % (34.2-44.1); HEMOGLOBIN 8.1 g/dL (12.0-16.0); LYMPHOCYTES % 11.9 % (18.0-39.1); MEAN CORPUSCULAR HEMOGLOBIN 27.7 pg (28-32); MEAN CORPUSCULAR HGB CONC 31.6 g/dL (31-35); MEAN CORPUSCULAR VOLUME 87.7 fL (81-99); MONOCYTES # (AUTO) 0.7 (0.2-0.8); MONOCYTES % 8.4 % (4.4-11.3); NEUTROPHILS # (AUTO) 6.5 (2.1-6.9); NEUTROPHILS % 74.7 % (38.7-80.0); PLATELET COUNT 226 x10e3/uL (140-360); RED BLOOD COUNT 2.92 x10e6/uL (3.6-5.1); RED CELL DISTRIBUTION WIDTH 17.3 % (11.7-14.4); WHITE BLOOD COUNT 8.71 x10e3/uL (4.8-10.8)
[2024-09-17 07:31] LABS: ALBUMIN 2.6 g/dL (3.5-5.0); ALBUMIN/GLOBULIN RATIO 0.6 (0.8-2.0); ANION GAP 17.5 mmol/L (8-16); BILIRUBIN,TOTAL 0.5 mg/dL (0.2-1.2); CALCIUM 9.2 mg/dL (8.4-10.2); CREATININE, SERUM 4.69 mg/dL (0.57-1.11); POTASSIUM 3.5 mmol/L (3.5-5.1); TOTAL PROTEIN 7.3 g/dL (6.5-8.1)
[2024-09-17 08:45] LABS: ABG HCO3 27 mmol/L (22-26); ABG PCO2 34 mmHg (35-45); ABG PO2 100 mmHg (80-105); ABG TCO2 28
[2024-09-17] MEDS: EPOETIN ALFA-EPBX 10,000 UNIT/ML VIAL SC SCH (09:50)
[2024-09-17] MEDS: IRON SUCROSE 100 MG in SODIUM CHLORIDE 0.9% 100 ML IV SCH (09:50)
[2024-09-17 13:09] LABS: HEPATITIS B CORE AB TOTAL Negative (Negative)
[2024-09-17 13:41] LABS: ABG HCO3 26 mmol/L (22-26); ABG PCO2 36 mmHg (35-45); ABG PH 7.52 (7.35-7.45); ABG PO2 117 mmHg (80-105); ABG TCO2 30
[2024-09-17 14:22] LABS: ABG HCO3 29 mmol/L (22-26); ABG PCO2 36 mmHg (35-45); ABG PH 7.52 (7.35-7.45); ABG PO2 117 mmHg (80-105); ABG TCO2 30
[2024-09-17 14:22] LABS: ABG HCO3 27 mmol/L (22-26); ABG PCO2 34 mmHg (35-45); ABG PO2 100 mmHg (80-105); ABG TCO2 28
[2024-09-17] MEDS: ARTIFICIAL TEARS (OPTH) 15 ML BTL OU PRN (15:35)
[2024-09-17] MEDS: LABETALOL HCL 5 MG/ML 20ML VIAL IV PRN (15:36)
[2024-09-17 17:29] LABS: HEPATITIS B CORE IGM (P) Negative (Negative); HEPATITIS B SURFACE AB QUANT <3.5 mIU/mL (Immunity>10)
[2024-09-17] MEDS: Morphine 2mg Syringe 2 MG/ML SYR IV PRN (20:55)
[2024-09-18] VITALS (35 sets, daily range): BP systolic 141–216; BP diastolic 49–119; PULSE 63–88; RESP 8–19; TEMP 97.6–98.6; O2SAT 90–98
[2024-09-18 07:01] LABS: BASOPHILS # (AUTO) 0.1 (0.0-0.1); BASOPHILS % 0.5 % (0.0-1.0); EOSINOPHILS # (AUTO) 0.5 (0.0-0.4); EOSINOPHILS % 5.2 % (0.0-6.0); HEMATOCRIT 28.6 % (34.2-44.1); HEMOGLOBIN 8.3 g/dL (12.0-16.0); LYMPHOCYTES # (AUTO) 0.9 (1.0-3.2); LYMPHOCYTES % 9.5 % (18.0-39.1); MEAN CORPUSCULAR HEMOGLOBIN 27.5 pg (28-32); MEAN CORPUSCULAR VOLUME 94.7 fL (81-99); MONOCYTES # (AUTO) 0.8 (0.2-0.8); MONOCYTES % 8.5 % (4.4-11.3); NEUTROPHILS # (AUTO) 7.4 (2.1-6.9); NEUTROPHILS % 75.4 % (38.7-80.0); PLATELET COUNT 214 x10e3/uL (140-360); RED BLOOD COUNT 3.02 x10e6/uL (3.6-5.1); RED CELL DISTRIBUTION WIDTH 17.5 % (11.7-14.4); WHITE BLOOD COUNT 9.79 x10e3/uL (4.8-10.8)
[2024-09-18 07:58] LABS: ALBUMIN 2.6 g/dL (3.5-5.0); ALBUMIN/GLOBULIN RATIO 0.5 (0.8-2.0); ANION GAP 17.7 mmol/L (8-16); BILIRUBIN,TOTAL 0.7 mg/dL (0.2-1.2); CALCIUM 9.2 mg/dL (8.4-10.2); CREATININE, SERUM 3.87 mg/dL (0.57-1.11); POTASSIUM 3.7 mmol/L (3.5-5.1); TOTAL PROTEIN 7.4 g/dL (6.5-8.1)
[2024-09-18] MEDS ORDERED: ALBUMIN 25% 12.5GM 0.25 GM/ML BTL IV PRN (09:00)
[2024-09-18] MEDS: FUROSEMIDE INJ 10 MG/ML 4 ML VIAL IV SCH (10:43)
[2024-09-18] MEDS: CLONIDINE HCL 0.3MG/24 HR PATCH TOP SCH (10:44)
[2024-09-18] MEDS: ENALAPRILAT IV INJ 1.25 MG/ML VIAL IV SCH (11:54)
[2024-09-18] MEDS: GABAPENTIN 300 MG CAP PO SCH (13:26)
[2024-09-18] MEDS: LABETALOL HCL 5 MG/ML 20ML VIAL IV PRN (14:01)
[2024-09-18] MEDS: HYDROCODONE/APAP 10MG-325MG TAB PO PRN (21:52)
[2024-09-19] VITALS (43 sets, daily range): BP systolic 105–205; BP diastolic 46–78; PULSE 62–114; RESP 8–22; TEMP 98–99.7; O2SAT 76–100
[2024-09-19 09:15] LABS: BASOPHILS # (AUTO) 0.1 (0.0-0.1); BASOPHILS % 0.7 % (0.0-1.0); EOSINOPHILS # (AUTO) 0.7 (0.0-0.4); EOSINOPHILS % 7.1 % (0.0-6.0); HEMATOCRIT 28.8 % (34.2-44.1); HEMOGLOBIN 8.2 g/dL (12.0-16.0); LYMPHOCYTES # (AUTO) 0.9 (1.0-3.2); LYMPHOCYTES % 8.4 % (18.0-39.1); MEAN CORPUSCULAR HEMOGLOBIN 27.4 pg (28-32); MEAN CORPUSCULAR HGB CONC 28.5 g/dL (31-35); MEAN CORPUSCULAR VOLUME 96.3 fL (81-99); MONOCYTES # (AUTO) 0.8 (0.2-0.8); MONOCYTES % 7.7 % (4.4-11.3); NEUTROPHILS # (AUTO) 7.7 (2.1-6.9); NEUTROPHILS % 74.6 % (38.7-80.0); PLATELET COUNT 213 x10e3/uL (140-360); RED BLOOD COUNT 2.99 x10e6/uL (3.6-5.1); RED CELL DISTRIBUTION WIDTH 17.2 % (11.7-14.4); WHITE BLOOD COUNT 10.33 x10e3/uL (4.8-10.8)
[2024-09-19 09:43] LABS: ANION GAP 16.1 mmol/L (8-16); CALCIUM 8.8 mg/dL (8.4-10.2); CREATININE, SERUM 4.68 mg/dL (0.57-1.11); POTASSIUM 4.1 mmol/L (3.5-5.1)
[2024-09-19] MEDS ORDERED: HEPARIN SOD (PORCINE) 1000 UNIT/ML SDV IV PRN (12:15)
[2024-09-19] MEDS: NIFEDIPINE CR 30 MG TAB PO SCH (20:22)
[2024-09-20] VITALS (21 sets, daily range): BP systolic 99–154; BP diastolic 47–59; PULSE 64–81; RESP 10–24; TEMP 97.5–98.2; O2SAT 91–100
[2024-09-20 06:54] LABS: HEPATITIS B SURFACE AG (P) Negative (Negative)
[2024-09-20] MEDS ORDERED: ALBUMIN 25% 12.5GM 0.25 GM/ML BTL IV PRN (09:00)
[2024-09-20] MEDS ORDERED: HEPARIN SOD (PORCINE) 1000 UNIT/ML SDV IV PRN (09:00)
[2024-09-20] MEDS: INSULIN REGULAR, HUMAN 100 UNIT/1 ML SQ SCH (20:38)
[2024-09-20] MEDS: GUAIFENESIN 600 MG TAB PO SCH (23:09)
[2024-09-21] VITALS (8 sets, daily range): BP systolic 103–126; BP diastolic 49–61; PULSE 64–78; RESP 18–19; TEMP 97.7–99; O2SAT 92–98
[2024-09-21] MEDS ORDERED: HEPARIN SOD (PORCINE) 1000 UNIT/ML SDV IV PRN ×2 (08:15→08:30)
[2024-09-21] MEDS ORDERED: LIDOCAINE HCL 1% 30ML-PF VIAL ONE (08:41)
[2024-09-21] MEDS ORDERED: SODIUM CHLORIDE 0.9% 500ML 500 ML ONE ×2 (08:41→15:52)
[2024-09-21] MEDS ORDERED: FENTANYL CITRATE/PF 100MCG/2 ML INJ ONE (15:45)
[2024-09-21] MEDS ORDERED: MIDAZOLAM HCL 2 MG/2 ML VIAL ONE (15:45)
[2024-09-21] MEDS ORDERED: SODIUM CHLORIDE 0.9% 100 ML ONE (15:46)
[2024-09-21] MEDS ORDERED: SODIUM CHLORIDE 0.9% 250ML 250 ML ONE (15:46)
[2024-09-21] MEDS ORDERED: HEPARIN SOD (PORCINE) 1000 UNIT/ML SDV ONE (15:51)
[2024-09-22] VITALS (11 sets, daily range): BP systolic 108–150; BP diastolic 41–56; PULSE 63–75; RESP 16–18; TEMP 97.6–98.7; O2SAT 92–100
[2024-09-22] MEDS: SODIUM CHLORIDE 0.9% 250ML 250 ML ONE (09:12)
[2024-09-22] MEDS ORDERED: TOPROL XL50 MG PO (16:08)
[2024-09-22] MEDS ORDERED: PROCARDIA XL90 MG (16:08)
[2024-09-22] MEDS ORDERED: LOKELMA10 GM (16:08)
[2024-09-22] MEDS ORDERED: ONDANSETRON ODT4 MG PO (16:08)
[2024-09-22] MEDS ORDERED: TERAZOSIN HCL2 MG (16:08)
[2024-09-22] MEDS ORDERED: HYDRALAZINE HC100 MG PO (16:08)
[2024-09-22] MEDS ORDERED: PREDNISONE20 MG PO (16:08)
[2024-09-22] MEDS ORDERED: PANTOPRAZOLE SO40 MG PO (16:08)
[2024-09-22] MEDS ORDERED: DIAZEPAM5 MG PO (20:16)
[2024-09-22] MEDS: DIAZEPAM 5 MG TAB PO SCH (20:43)
[2024-09-22] MEDS: BENZONATATE 100 MG CAP PO SCH (22:30)
[2024-09-22] MEDS: GUAIFENESIN 600MG/DEXTROMETHORPHAN 30MG TABSR PO SCH (22:30)
[2024-09-22] MEDS: LORATADINE 10 MG TAB PO SCH (22:30)
[2024-09-23] VITALS (8 sets, daily range): BP systolic 123–159; BP diastolic 52–59; PULSE 64–79; RESP 16–18; TEMP 97.6–98.6; O2SAT 93–100
[2024-09-23] MEDS ORDERED: MAGNESIUM HYDROXIDE 30 ML UDC PO PRN (15:30)
[2024-09-23] MEDS: POLYETHYLENE GLYCOL 3350 17 GM PACK PO SCH (16:00)
[2024-09-23] MEDS: BISACODYL 10 MG SUPP PR ONE (16:00)
[2024-09-23] MEDS: MAGNESIUM HYDROXIDE 30 ML UDC PO ONE (16:00)
[2024-09-23] MEDS: SENNA-S TABLET PO SCH (16:00)
[2024-09-23] MEDS ORDERED: Morphine 2mg Syringe 2 MG/ML SYR IV PRN (16:45)
[2024-09-24] MEDS: HYDROCODONE/APAP 10MG-325MG TAB PO PRN (00:04)
[2024-09-24 04:31] VITALS: BP 136/58; PULSE 64; RESP 18; TEMP 98.6; O2SAT 97
[2024-09-24 05:32] LABS: BASOPHILS # (AUTO) 0.1 (0.0-0.1); BASOPHILS % 0.7 % (0.0-1.0); EOSINOPHILS # (AUTO) 0.5 (0.0-0.4); EOSINOPHILS % 6.5 % (0.0-6.0); HEMATOCRIT 25.5 % (34.2-44.1); LYMPHOCYTES # (AUTO) 1.2 (1.0-3.2); LYMPHOCYTES % 15.9 % (18.0-39.1); MEAN CORPUSCULAR HEMOGLOBIN 28.3 pg (28-32); MEAN CORPUSCULAR HGB CONC 31.4 g/dL (31-35); MEAN CORPUSCULAR VOLUME 90.1 fL (81-99); MONOCYTES # (AUTO) 0.8 (0.2-0.8); MONOCYTES % 10.6 % (4.4-11.3); NEUTROPHILS # (AUTO) 4.8 (2.1-6.9); NEUTROPHILS % 65.1 % (38.7-80.0); PLATELET COUNT 238 x10e3/uL (140-360); RED BLOOD COUNT 2.83 x10e6/uL (3.6-5.1); RED CELL DISTRIBUTION WIDTH 17.7 % (11.7-14.4); WHITE BLOOD COUNT 7.42 x10e3/uL (4.8-10.8)
[2024-09-24 06:03] LABS: ANION GAP 15.1 mmol/L (8-16); CALCIUM 8.4 mg/dL (8.4-10.2); CREATININE, SERUM 6.03 mg/dL (0.57-1.11); POTASSIUM 4.1 mmol/L (3.5-5.1)
[2024-09-24 09:00] VITALS: BP 116/62; PULSE 62; RESP 19; TEMP 98.1; O2SAT 100
[2024-09-24] MEDS: PANTOPRAZOLE SOD 40 MG TABEC PO SCH (09:02)
[2024-09-24] MEDS: BISACODYL 10 MG SUPP PR PRN (09:04)
[2024-09-24 09:21] VITALS: BP 116/62; PULSE 62; RESP 19; TEMP 98.1; O2SAT 100
== END 2024-09-24 12:30 | disposition home or self-care (01) | DRG 208 ==
LOC: ER 09:33 → ERHOLD 12:57 → ICU 15:36 → MED/SURG2 09-20 18:19
PROVIDERS: ADMIT Internal Medicine; ATTEND Internal Medicine
PROC: 0BH17EZ Insertion of Endotracheal Airway into Trachea, Via Natural or Artificial Opening (ICD-10-PCS; principal; 2024-09-15)
PROC: 5A1945Z Respiratory Ventilation, 24-96 Consecutive Hours (ICD-10-PCS; 2024-09-15)
PROC: 0T9B70Z Drainage of Bladder with Drainage Device, Via Natural or Artificial Opening (ICD-10-PCS; 2024-09-15)
PROC: 4A133R1 Monitoring of Arterial Saturation, Peripheral, Percutaneous Approach (ICD-10-PCS; 2024-09-16)
PROC: 02HV33Z Insertion of Infusion Device into Superior Vena Cava, Percutaneous Approach (ICD-10-PCS; 2024-09-16)
PROC: 0JH63XZ Insertion of Tunneled Vascular Access Device into Chest Subcutaneous Tissue and Fascia, Percutaneous Approach (ICD-10-PCS; 2024-09-21)
PROC: 02H633Z Insertion of Infusion Device into Right Atrium, Percutaneous Approach (ICD-10-PCS; 2024-09-21)
DX: J96.01 Acute respiratory failure with hypoxia (principal); J18.9 Pneumonia, unspecified organism; I50.43 Acute on chronic combined systolic (congestive) and diastolic (congestive) heart failure; N18.6 End stage renal disease; I13.2 Hypertensive heart and chronic kidney disease with heart failure and with stage 5 chronic kidney disease, or end stage renal disease; J44.0 Chronic obstructive pulmonary disease with (acute) lower respiratory infection; J44.1 Chronic obstructive pulmonary disease with (acute) exacerbation; N39.0 Urinary tract infection, site not specified; N17.9 Acute kidney failure, unspecified; I16.0 Hypertensive urgency; Z99.2 Dependence on renal dialysis; E11.42 Type 2 diabetes mellitus with diabetic polyneuropathy; K59.00 Constipation, unspecified; Z86.73 Personal history of transient ischemic attack (TIA), and cerebral infarction without residual deficits; B95.2 Enterococcus as the cause of diseases classified elsewhere; Z99.81 Dependence on supplemental oxygen; Z11.52 Encounter for screening for COVID-19; I25.10 Atherosclerotic heart disease of native coronary artery without angina pectoris; E78.5 Hyperlipidemia, unspecified; M54.9 Dorsalgia, unspecified; M06.9 Rheumatoid arthritis, unspecified; Z95.820 Peripheral vascular angioplasty status with implants and grafts; Z79.4 Long term (current) use of insulin; Z79.02 Long term (current) use of antithrombotics/antiplatelets; Z79.51 Long term (current) use of inhaled steroids; Z79.82 Long term (current) use of aspirin; Z90.710 Acquired absence of both cervix and uterus
CPT/HCPCS: 31500; 36415; 36558; 36600; 51700; 70450; 71045; 74018; 74470; 76770; 76937; 77001; 80048; 80053; 80307; 81001; 82570; 82805; 82948; 83605; 83735; 83880; 84100; 84156; 84300; 84484; 85025; 85610; 85730; 86704; 86705; 86706; 87040; 87086; 87186; 87340; 93005; 93306; 94002; 94003; 94640; 94760; 94799; 96372; 99152; 99153; 99285; C1769; C1892; J0330; J0360; J0690; J0692; J1644; J1756; J1815; J1940; J2003; J2150; J2250; J2270; J2405; J2470; J2919; J7030; J7040; J7050; J7799

== ENCOUNTER 2025-01-07 16:25 | Emergency (ER) | payer MEDICARE ==
[~2025-01-07] VITALS: Ht 167.6 cm; Wt 68.6 kg
[~2025-01-07 16:25] MED LIST changes: +DIAZEPAM5 MG PO; +HYDRALAZINE HC100 MG PO; +LOKELMA10 GM; +ONDANSETRON ODT4 MG PO; +PANTOPRAZOLE SO40 MG PO; +PREDNISONE20 MG PO; +PROCARDIA XL90 MG; +TERAZOSIN HCL2 MG; +TOPROL XL50 MG PO
[2025-01-07 17:00] VITALS: TEMP 97.8
[2025-01-07 17:43] LABS: BASOPHILS % 0.7 % (0.0-1.0); EOSINOPHILS # (AUTO) 0.1 (0.0-0.4); EOSINOPHILS % 2.2 % (0.0-6.0); HEMATOCRIT 32.8 % (34.2-44.1); HEMOGLOBIN 10.3 g/dL (12.0-16.0); LYMPHOCYTES # (AUTO) 1.3 (1.0-3.2); LYMPHOCYTES % 21.6 % (18.0-39.1); MEAN CORPUSCULAR HEMOGLOBIN 26.1 pg (28-32); MEAN CORPUSCULAR HGB CONC 31.4 g/dL (31-35); MONOCYTES # (AUTO) 0.6 (0.2-0.8); MONOCYTES % 9.7 % (4.4-11.3); NEUTROPHILS # (AUTO) 3.9 (2.1-6.9); NEUTROPHILS % 65.6 % (38.7-80.0); PLATELET COUNT 266 x10e3/uL (140-360); RED BLOOD COUNT 3.95 x10e6/uL (3.6-5.1); WHITE BLOOD COUNT 5.88 x10e3/uL (4.8-10.8)
[2025-01-07 18:03] LABS: ALBUMIN 3.2 g/dL (3.5-5.0); ALBUMIN/GLOBULIN RATIO 0.5 (0.8-2.0); ANION GAP 17.9 mmol/L (8-16); BILIRUBIN,TOTAL 0.4 mg/dL (0.2-1.2); CALCIUM 8.8 mg/dL (8.4-10.2); CREATININE, SERUM 6.32 mg/dL (0.57-1.11); POTASSIUM 3.9 mmol/L (3.5-5.1); TOTAL PROTEIN 9.1 g/dL (6.5-8.1)
[2025-01-07 18:09] LABS: TROPONIN I 0.052 ng/mL (0-0.300)
[2025-01-07 19:06] VITALS: PULSE 74; RESP 15; O2SAT 95
== END 2025-01-07 19:07 | disposition home or self-care (01) ==
LOC: ER 16:45
DX: R53.1 Weakness (principal); I12.0 Hypertensive chronic kidney disease with stage 5 chronic kidney disease or end stage renal disease; E11.22 Type 2 diabetes mellitus with diabetic chronic kidney disease; N18.6 End stage renal disease; Z99.2 Dependence on renal dialysis; J44.9 Chronic obstructive pulmonary disease, unspecified; I50.9 Heart failure, unspecified; E78.5 Hyperlipidemia, unspecified; J45.909 Unspecified asthma, uncomplicated; I25.10 Atherosclerotic heart disease of native coronary artery without angina pectoris; D64.9 Anemia, unspecified; M06.9 Rheumatoid arthritis, unspecified; F32.A Depression, unspecified; M54.9 Dorsalgia, unspecified; G89.29 Other chronic pain; R94.31 Abnormal electrocardiogram [ECG] [EKG]
CPT/HCPCS: 36415; 71045; 80053; 82550; 83690; 83880; 84484; 85025; 93005; 99283